=== PATIENT | male | born 1945 | race Caucasian/White ===

== ENCOUNTER 2017-01-01 22:39 | Observation (INO) | payer OTHER ==
[~2017-01-01] VITALS: Ht 177.8 cm; Wt 86.9 kg
[~2017-01-01 22:39] MED LIST: ADVIL200 MG PO; AMLODIPINE BES2.5 MG PO; ASPIR-LOW81 MG PO; ASPIRIN325 MG PO; CAPSAICIN60 GM TP; DUONEB 2.5-0.5 M3 ML IH; GABAPENTIN300 MG PO; GLUCOPHAGE500 MG PO; GLUCOTROL10 MG PO; GUAIFENESIN WI120 M1 PO; HYTRIN5 MG PO; LANTUS 3 M100 UNITS1 SC; LASIX20 MG PO; LIPITOR80 MG PO; LO-DOSE ASPIRIN81 M1 PO; MECLIZINE HCL12.5 M1 PO; METFORMIN HCL1000 MG PO; METFORMIN HCL500 MG PO; NEURONTIN300 MG PO; NICOTINE PATCH1 EAC1 TD; PLAVIX75 MG PO; PRAVACHOL40 MG PO; PREDNISONE5 MG PO; PROVENTIL,2.5 MG/3 M IH; TOPROL XL50 MG PO; ULTRAM50 MG PO; VASOTEC5 MG PO; VENTOLIN HFA18 GM IH; VITAMIN D31000 UNI2 PO; ZANTAC150 MG PO
[2017-01-01 23:35] LABS: HEMATOCRIT 38.4 % (38.0-50.0); MCHC 33.3 G/DL (30.0-36.0); MEAN PLAT.VOLUME 10.7 uM^3 (9.0-12.4); PLATELET COUNT 196 K/uL (156-360); RBC DIS.WIDTH-CV 13.7 % (11.8-14.6); RBC DIS.WIDTH-SD 42.4 % (39-53); RED BLOOD COUNT 4.57 M/uL (4.00-5.50); WHITE BLOOD COUNT 9.5 K/uL (4.1-10.2)
[2017-01-01 23:43] LABS: CHLORIDE 107 mEq/L (99-109); POTASSIUM 3.8 mEq/L (3.7-5.4); PROTHROMBIN TIME 10.3 (9.2-11.2); PTT 30.7 (25-32); SODIUM 140 mEq/L (136-147)
[2017-01-01 23:45] LABS: GLUCOSE 172 mg/dL (70-99)
[2017-01-01 23:47] LABS: ANION GAP 11 MEQ/L (2-14); TOTAL BILIRUBIN 0.3 mg/dL (0.0-1.0)
[2017-01-01 23:49] LABS: ALKALINE PHOSPHATASE 99 IU/L (3-129); GFR ESTIMATE (CALCULATED) > 59 mL/min/
[2017-01-01 23:50] LABS: UREA NITROGEN (BUN) 13 mg/dL (9-23)
[2017-01-01 23:53] LABS: LIPASE 93 U/L (1.0-51.0)
[2017-01-01 23:55] LABS: TROP-I INTERPRETATION NEGATIVE; TROPONIN-I < 0.01 ng/mL (0.0-0.30)
[2017-01-02] MEDS ORDERED: AMLODIPINE BESY10 MG PO (00:33)
[2017-01-02] MEDS ORDERED: VASOTEC20 MG PO (00:33)
[2017-01-02] MEDS ORDERED: ONGLYZA5 MG PO (00:35)
[2017-01-02 03:15] LABS: POINT-OF-CARE METER ID UU14162513
[2017-01-02 03:20] VITALS: BP 150/60
[2017-01-02 06:22] LABS: HDL CHOLESTEROL 25 MG/DL (Desirable>=40); LDL CHOLESTEROL 55 mg/dL (Desirable<100); NON-HDL CHOLESTEROL 89 mg/dL (Desirable<160); TOTAL CHOLESTEROL 114 mg/dL (Desirable<200); TRIGLYCERIDES 169 MG/DL (Normal: <150)
[2017-01-02 06:40] LABS: TROP-I INTERPRETATION NEGATIVE; TROPONIN-I < 0.01 ng/mL (0.0-0.30)
[2017-01-02 07:45] VITALS: BP 129/66
[2017-01-02 09:08] LABS: POINT-OF-CARE METER ID UU13113700
[2017-01-02 10:52] VITALS: BP 145/67
[2017-01-02 13:39] LABS: TROP-I INTERPRETATION NEGATIVE; TROPONIN-I < 0.01 ng/mL (0.0-0.30)
== END 2017-01-02 14:09 | disposition home or self-care (01) ==
LOC: EME → EDBD 22:39 → EME 22:39 → EDOF 01-02 00:53 → 5WEST 01-02 01:52
PROVIDERS: Emergency Medicine; Hospitalist; Physician Assistant Medical
DX: R07.89 Other chest pain (principal); I25.810 Atherosclerosis of coronary artery bypass graft(s) without angina pectoris; I10 Essential (primary) hypertension; Z95.1 Presence of aortocoronary bypass graft; Z95.5 Presence of coronary angioplasty implant and graft; I25.2 Old myocardial infarction; E11.9 Type 2 diabetes mellitus without complications; E78.5 Hyperlipidemia, unspecified; I73.9 Peripheral vascular disease, unspecified; J44.9 Chronic obstructive pulmonary disease, unspecified; F17.200 Nicotine dependence, unspecified, uncomplicated; Z82.49 Family history of ischemic heart disease and other diseases of the circulatory system; Z88.0 Allergy status to penicillin; Z88.6 Allergy status to analgesic agent; Z88.2 Allergy status to sulfonamides; Z88.8 Allergy status to other drugs, medicaments and biological substances
CPT/HCPCS: 71020; 80053; 80061; 82948; 83690; 84484; 85027; 85610; 85730; 93005; 94640; 99202; 99281; 99285; G0378; J1644

== ENCOUNTER 2017-05-22 22:48 | Emergency (ER) | payer OTHER ==
[~2017-05-22] VITALS: Ht 177.8 cm; Wt 89.6 kg
[~2017-05-22 22:48] MED LIST changes: +AMLODIPINE BESY10 MG PO; +ONGLYZA5 MG PO; +VASOTEC20 MG PO
[2017-05-22 23:25] LABS: HEMATOCRIT 38.9 % (38.0-50.0); MCH 28.9 PG (29.0-34.0); MCHC 34.2 G/DL (30.0-36.0); MCV 84.6 FL (86-99); MEAN PLAT.VOLUME 10.7 uM^3 (9.0-12.4); PLATELET COUNT 205 K/uL (156-360); RBC DIS.WIDTH-CV 13.4 % (11.8-14.6); RBC DIS.WIDTH-SD 41.3 % (39-53); WHITE BLOOD COUNT 8.5 K/uL (4.1-10.2)
[2017-05-22 23:30] LABS: CHLORIDE 108 mEq/L (99-109); POTASSIUM 3.9 mEq/L (3.7-5.4); SODIUM 140 mEq/L (136-147)
[2017-05-22 23:31] LABS: GLUCOSE 148 mg/dL (70-99)
[2017-05-22 23:33] LABS: ANION GAP 9 MEQ/L (2-14)
[2017-05-22 23:35] LABS: GFR ESTIMATE (CALCULATED) > 59 mL/min/
[2017-05-22 23:36] LABS: UREA NITROGEN (BUN) 14 mg/dL (9-23)
[2017-05-22 23:44] LABS: TROP-I INTERPRETATION NEGATIVE; TROPONIN-I < 0.01 ng/mL (0.0-0.30)
[2017-05-23 02:17] LABS: TROP-I INTERPRETATION NEGATIVE; TROPONIN-I < 0.01 ng/mL (0.0-0.30)
[2017-05-23 03:35] VITALS: BP 131/66
== END 2017-05-23 03:35 | disposition home or self-care (01) ==
LOC: EME 22:48
PROVIDERS: Emergency Medicine
DX: R07.89 Other chest pain (principal); J44.9 Chronic obstructive pulmonary disease, unspecified; K21.9 Gastro-esophageal reflux disease without esophagitis; I10 Essential (primary) hypertension; E78.5 Hyperlipidemia, unspecified; E11.9 Type 2 diabetes mellitus without complications; I25.2 Old myocardial infarction; Z95.5 Presence of coronary angioplasty implant and graft; Z95.1 Presence of aortocoronary bypass graft; F17.200 Nicotine dependence, unspecified, uncomplicated; Z85.9 Personal history of malignant neoplasm, unspecified; Z79.4 Long term (current) use of insulin; Z79.82 Long term (current) use of aspirin; Z88.0 Allergy status to penicillin; Z88.6 Allergy status to analgesic agent; Z88.8 Allergy status to other drugs, medicaments and biological substances
CPT/HCPCS: 71020; 80048; 84484; 85027; 93005; 99281; 99285